=== PATIENT | female | born 1965 | race Caucasian/White ===

== ENCOUNTER → 2016-12-06 | Outpatient (CLI) | payer OTHER ==
[~2016-12-06] VITALS: Ht 162.6 cm; Wt 81.0 kg
[~2016-12-06] MED LIST: ATARAX50 MG PO; CALCIUM 600MG+D1 TAB PO; DESYREL 100MG100 MG PO; EXCEDRIN TENSIO1 TAB PO; FLEXERIL 1010 MG/TAB PO; L-METHYLFOLATE15 MG PO; SYNTHROID0.075 MG/T PO; TOPROL XL 25MG25 MG PO; ZOCOR 80MG80 MG PO; [UNRECOGNIZED DRUG - OTHER] PO
[2016-12-06 08:42] VITALS: BP 129/83; PULSE 95
== END ==
LOC: COL.CARD 08:12
DX: R07.89 Other chest pain (principal); F17.210 Nicotine dependence, cigarettes, uncomplicated; E78.4 Other hyperlipidemia; R94.39 Abnormal result of other cardiovascular function study
CPT/HCPCS: A9502